=== PATIENT | female | born 1970 | race Caucasian/White ===

== ENCOUNTER → 2016-10-07 | Outpatient (CLI) | payer SELFPAY ==
[~2016-10-07] MED LIST: ADVIL200 MG PO; ASMANEX110 MC1 PO; ASMANEX220 MCG INH; LAMISIL AT30 GM TOP; LATUDA20 MG; LEXAPRO20 MG PO; MOBIC15 MG PO; NEURONTIN100 MG PO; PRILOSEC10 MG; PRILOSEC20 MG PO; PROTONIX40 M1 PO; PROZAC40 MG PO; RITALIN 20 MG PO; SEROQUEL300 MG PO; TAPAZOLE5 MG PO; TENORMIN25 MG PO; TREXAN (REVIA)50 MG PO; VISTARIL50 MG PO; VITAMIN E200 UNIT PO; VITAMIN E400 UNI2 PO
== END | disposition disaster alternative care site (69) ==
LOC: GRAD 10:21
DX: E01.0 Iodine-deficiency related diffuse (endemic) goiter (principal); E04.9 Nontoxic goiter, unspecified; R94.6 Abnormal results of thyroid function studies

== ENCOUNTER → 2016-10-12 | Outpatient (CLI) | payer SELFPAY | END | disposition disaster alternative care site (69) | LOC: GRAD 08:59 | DX: E01.0 Iodine-deficiency related diffuse (endemic) goiter (principal); R94.6 Abnormal results of thyroid function studies ==